=== PATIENT | male | born 1995 | race African-American/Black ===

== ENCOUNTER 2017-06-02 12:39 | Emergency (ER) | payer OTHER ==
[~2017-06-02] VITALS: Ht 185.4 cm; Wt 71.0 kg
[~2017-06-02 12:39] MED LIST: EPIN0.3P2 IM; OXYM30MI NS
[2017-06-02] MEDS ORDERED: INHALER IH (12:58)
[2017-06-02] MEDS ORDERED: IBUPROFEN 800 MG TABLET PO ONE (13:45)
[2017-06-02 14:41] VITALS: BP 18/81
== END 2017-06-02 15:00 | disposition home or self-care (01) ==
LOC: EMS 12:41
DX: S92.351A Displaced fracture of fifth metatarsal bone, right foot, initial encounter for closed fracture (principal); Z91.010 Allergy to peanuts; W18.49XA Other slipping, tripping and stumbling without falling, initial encounter; Y93.31 Activity, mountain climbing, rock climbing and wall climbing; Y92.89 Other specified places as the place of occurrence of the external cause; Y99.9 Unspecified external cause status
CPT/HCPCS: 99284

== ENCOUNTER 2017-07-20 14:40 | Emergency (ER) | payer MEDICAID, OTHER ==
[~2017-07-20] VITALS: Ht 185.4 cm; Wt 70.4 kg
[~2017-07-20 14:40] MED LIST changes: +INHALER IH
[2017-07-20] MEDS ORDERED: ACETAMINOPHEN 325 MG TABLET PO ONE (15:15)
[2017-07-20] MEDS ORDERED: DEXAMETHASONE SOD PHOS 4 MG/ML 5 ML VIAL IM ONE (15:15)
[2017-07-20 16:47] VITALS: BP 135/87
== END 2017-07-20 18:02 | disposition home or self-care (01) ==
LOC: EMS 14:41
DX: J02.9 Acute pharyngitis, unspecified (principal); Z91.010 Allergy to peanuts
CPT/HCPCS: 87430; 96372; 99283; J1100